=== PATIENT | female | born 1975 | race Hispanic/Latino ===

== ENCOUNTER → 2020-09-22 | Outpatient (CLI) | payer OTHER | END | disposition home or self-care (01) | LOC: RAH 10:27 | PROVIDERS: ATTEND Obstetrics & Gynecology | DX: Z12.31 Encounter for screening mammogram for malignant neoplasm of breast (principal) | CPT/HCPCS: 77067 ==

== ENCOUNTER → 2022-11-19 | Outpatient (CLI) | payer BC, OTHER | END | disposition home or self-care (01) | LOC: RAH 10:20 | PROVIDERS: ATTEND Obstetrics & Gynecology | DX: Z12.31 Encounter for screening mammogram for malignant neoplasm of breast (principal) | CPT/HCPCS: 77067 ==

== ENCOUNTER 2025-01-17 06:18 | Day surgery (SDC) | payer BC ==
--- NOTE | 2025-01-10 09:45 | EKG ---
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
--- NOTE | 2025-01-10 14:47 | HMCIMG ---
STUDY: X-RAY OF THE CHEST, 2 VIEWS HISTORY: Pre-Op TECHNIQUE: PA and lateral views of the chest are submitted for interpretation. COMPARISON: None FINDINGS: Pulmonary guy: There are no pulmonary infiltrates or nodules. Symmetrical aeration is noted. Cardiac silhouette: Cardiac silhouette is within normal limits. Mediastinum and mina: There is no mediastinal mass or evidence of mediastinal widening. The retrosternal space is well preserved with no opacities. Osseous structures: Limited evaluation of the ribcage and thoracic spine reveal no abnormality. Miscellaneous: There is no pneumothorax or pleural effusion. Costophrenic angles are clear bilaterally. There is no free air seen under the diaphragms. IMPRESSION: 1. No acute cardiopulmonary abnormality. /[place]
[2025-01-17] VITALS (11 sets, daily range): BP systolic 97–129; BP diastolic 51–80; PULSE 61–78; RESP 14–18; TEMP 97–97.6
[~2025-01-17] VITALS: Ht 165.1 cm; Wt 94.8 kg
[~2025-01-17 06:18] MED LIST: ATOR10 PO; CHOL10CA2 PO; CYAN-106 PO; GABA-529 PO; GLIP-300 PO; LEVO100C5 PO; LOSA50TA64 PO; MAGN400T53 PO; METF-444 PO; TIRZ7.5P SQ
[2025-01-17] MEDS: 0.9%NACL 1000ML 1,000 ML IV ONE (07:38)
[2025-01-17] MEDS ORDERED: MIDAZOLAM HCL 1 MG/ML 2ML VIAL ONE (08:54)
[2025-01-17] MEDS ORDERED: LIDOCAINE PF 100MG/5ML (2%) SYRINGE 5ML ONE (08:55)
--- NOTE | 2025-01-24 12:41 | OP ---
Operative Note: DATE OF PROCEDURE: 01/17/25 SURGEON: BREN RIOS MD [employer] PROFESSIONAL: [] ANESTHESIA: []MAC ANESTHESIOLOGIST/PATTERN HANGER: [] PREOPERATIVE DIAGNOSIS: []GERD POSTOPERATIVE DIAGNOSIS: []Same SYNOPSIS: [] PROCEDURE: []Upper endoscopy ESTIMATED BLOOD LOSS: [] INDICATIONS: [] DESCRIPTION OF PROCEDURE: []with the patient on conscious sedation, I inserted endoscope through mouth. Esophagus was normal. I advanced scope to the stomach and no major pathology found. I advanced scope through pylorus and 1st and 2nd portion of duodenum. No pathology found. I retrieved the scop and retroflexed towards fundus. No hiatal hernia or any other pathology encountered. I took biopsy of antrum because mild gastritis. Scope was [id number] and air and fluid suctioned. No complications BREN RIOS MD Jan 24, 2025 12:41
== END 2025-01-17 10:20 | disposition home or self-care (01) ==
LOC: ENDO 06:18 → DAH 06:18 → ENDO 10:20
PROVIDERS: ATTEND Surgery
DX: K21.9 Gastro-esophageal reflux disease without esophagitis (principal); K29.50 Unspecified chronic gastritis without bleeding; K31.A0 Gastric intestinal metaplasia, unspecified; I10 Essential (primary) hypertension; E11.40 Type 2 diabetes mellitus with diabetic neuropathy, unspecified; E05.90 Thyrotoxicosis, unspecified without thyrotoxic crisis or storm; G25.81 Restless legs syndrome; G47.33 Obstructive sleep apnea (adult) (pediatric); E66.01 Morbid (severe) obesity due to excess calories; Z68.35 Body mass index [BMI] 35.0-35.9, adult; Z98.51 Tubal ligation status; Z98.891 History of uterine scar from previous surgery; Z90.49 Acquired absence of other specified parts of digestive tract; Z79.890 Hormone replacement therapy; Z87.442 Personal history of urinary calculi; Z83.3 Family history of diabetes mellitus; Z82.49 Family history of ischemic heart disease and other diseases of the circulatory system; Z79.899 Other long term (current) drug therapy; Z98.890 Other specified postprocedural states
CPT/HCPCS: 71046; 93005; 82948 ×2; 81025; 88305; 88312; 43239; J3010; J7030 ×2; J2003; J2250; J2704; A4620; A4215 ×2; A4223; A7002; A4222; A4221; A4663; A4606; J3490